=== PATIENT | female | born 1985 | race African-American/Black ===

== ENCOUNTER 2024-04-10 04:37 | Inpatient (IN) | payer BC, MEDICAID ==
[~2024-04-10] VITALS: Ht 175.3 cm; Wt 76.2 kg
[2024-04-10 04:43] VITALS: O2SAT 100
[2024-04-10] MEDS: ONDANSETRON 4MG ODT PO ONE (05:45)
[2024-04-10 06:29] LABS: CHLORIDE 109 mEq/L (98-107); POTASSIUM 3.9 mEq/L (3.5-5.1); SODIUM 140 mEq/L (136-145)
[2024-04-10 06:30] LABS: CALCIUM 10.1 mg/dL (8.7-10.4); CARBON DIOXIDE 19 mEq/L (21-32)
[2024-04-10 06:35] LABS: GLUCOSE 139 mg/dL (70-105); UREA NITROGEN BLOOD 14 mg/dL (9-23)
[2024-04-10 06:37] LABS: ALANINE AMINOTRANSFERASE 23 IU/L (10-49); ALBUMIN 4.6 g/dL (3.2-4.8); ASPARTATE AMINOTRANSFERASE 25 IU/L (<34); BILIRUBIN DIRECT 0.2 mg/dL (<=3.0); BILIRUBIN TOTAL 0.7 mg/dL (0.1-1.0); PROTEIN TOTAL 7.6 g/dL (6.0-8.3)
[2024-04-10 06:38] LABS: HEMATOCRIT. 37.6 % (36.0-48.0); HEMOGLOBIN. 12.5 g/dL (12.0-16.0); MEAN CORPUSCULAR HEMOGLOBIN 27.7 pg (28.0-32.0); MEAN CORPUSCULAR HGB CONC 33.3 g/dL (31.0-37.0); MEAN CORPUSCULAR VOLUME 83.1 fL (81.0-99.0); MEAN PLATELET VOLUME 9.4 fl (7.4-10.4); PLATELET 334 x1000/uL (130-400); RED BLOOD CELL COUNT 4.53 mill/uL (4.2-5.4); RED CELL DISTRIBUTION WIDTH 15.9 % (11.6-14.6); WHITE BLOOD COUNT 11.4 x1000/uL (4.5-11.0)
[2024-04-10] MEDS: SODIUM CHLORIDE 0.9% 1,000 ML IV ONE (06:45)
[2024-04-10] MEDS: MORPHINE SULFATE 4 MG/ML INJ (FOR IV/IM USE) IV ONE (06:57)
[2024-04-10 07:24] LABS: HCG SCREEN NEGATIVE
[2024-04-10 07:49] LABS: CLARITY URINE CLEAR (CLEAR); COLOR URINE YELLOW (YELLOW); GLUCOSE URINE NEGATIVE (NEGATIVE); KETONES URINE 3+ (NEGATIVE); LEUKOCYTE ESTERASE URINE NEGATIVE (NEGATIVE); NITRITE URINE NEGATIVE (NEGATIVE); OCCULT BLOOD URINE NEGATIVE (NEGATIVE); PH URINE >=9.0 (4.5-8.0); PROTEIN URINE 1+ (NEGATIVE); SPECIFIC GRAVITY URINE 1.021 (1.005-1.030)
[2024-04-10 07:55] LABS: DIFFERENTIAL COMMENT 1
[2024-04-10 08:04] LABS: MUCUS URINE 2+ /lpf (< = 2+); SQUAMOUS EPITHELIAL CELL URINE 2+ /lpf (RARE/1+)
[2024-04-10 08:05] LABS: WBC URINE 0-2 /hpf (0-2)
[2024-04-10 08:06] LABS: BACTERIA URINE TRACE
[2024-04-10 09:40] LABS: ANISOCYTOSIS 1+; PLATELET ESTIMATE NORMAL
[2024-04-10] MEDS: SODIUM CHLORIDE 0.9% 1,000 ML IV SCH (16:30)
[2024-04-10] MEDS ORDERED: DIPHENHYDRAMINE 50MG/ML VIAL IV PRN (16:30)
[2024-04-10] MEDS ORDERED: NALOXONE HCL 0.4MG/ML VIAL IV PRN (16:30)
[2024-04-10] MEDS: ONDANSETRON HCL 4MG/2ML INJ IV PRN (16:54)
[2024-04-10] MEDS: MORPHINE SULFATE 4 MG/ML INJ (FOR IV/IM USE) IV PRN (16:54)
[2024-04-10 17:30] VITALS: BP 126/69; PULSE 88; RESP 18; TEMP 36.78072; O2SAT 100
[2024-04-10 20:00] VITALS: PULSE 100; RESP 18; TEMP 37.00296; O2SAT 99
[2024-04-11] VITALS (7 sets, daily range): BP systolic 95–131; BP diastolic 50–69; PULSE 68–100; RESP 18–20; TEMP 36.22512–37.05852; O2SAT 97–100
[2024-04-11 06:52] LABS: CHLORIDE 108 mEq/L (98-107); POTASSIUM 3.3 mEq/L (3.5-5.1); SODIUM 140 mEq/L (136-145)
[2024-04-11 06:53] LABS: CALCIUM 8.7 mg/dL (8.7-10.4); CARBON DIOXIDE 23 mEq/L (21-32)
[2024-04-11 06:54] LABS: BASOPHILS % 0.2 % (0.0-2.0); EOSINOPHILS % 0.8 % (0.0-5.0); HEMATOCRIT. 33.2 % (36.0-48.0); HEMOGLOBIN. 11.1 g/dL (12.0-16.0); LYMPHOCYTES % 24.1 % (20.0-50.0); MEAN CORPUSCULAR HEMOGLOBIN 28.1 pg (28.0-32.0); MEAN CORPUSCULAR HGB CONC 33.4 g/dL (31.0-37.0); MEAN PLATELET VOLUME 9.4 fl (7.4-10.4); MONOCYTES % 13.6 % (2.0-8.0); NEUTROPHILS % 61.3 % (40.0-76.0); PLATELET 269 x1000/uL (130-400); RED BLOOD CELL COUNT 3.95 mill/uL (4.2-5.4); RED CELL DISTRIBUTION WIDTH 15.8 % (11.6-14.6); WHITE BLOOD COUNT 7.1 x1000/uL (4.5-11.0)
[2024-04-11 06:58] LABS: CREATININE 1.1 mg/dL (0.6-1.0); GLUCOSE 89 mg/dL (70-105); UREA NITROGEN BLOOD 9 mg/dL (9-23)
[2024-04-11 07:00] LABS: PHOSPHORUS 1.9 mg/dL (2.5-4.9)
[2024-04-11] MEDS: PANTOPRAZOLE SODIUM 40 MG/VIAL IV SCH (09:34)
[2024-04-11] MEDS ORDERED: NALOXONE HCL 0.4MG/ML VIAL IV PRN (09:45)
[2024-04-11] MEDS ORDERED: POTASSIUM PHOSPHATE 20 MMOL in DEXT 5% WATER 243.3333 ML IV ONE (10:00)
[2024-04-11] MEDS: ACETAMINOPHEN 325MG TABLET PO PRN (10:53)
[2024-04-11] MEDS: POTASSIUM-SODIUM PHOSPHATE POWDER PACKET PO NR (10:53)
[2024-04-11] MEDS: HYDROCODONE/ACETAMINOPHEN 5/325MG TABLET PO PRN (14:19)
[2024-04-11] MEDS ORDERED: ONDA-241 MT (14:46)
[2024-04-11] MEDS ORDERED: ACET-3800 MT (14:46)
[2024-04-12] VITALS: BP 89/57; PULSE 75; RESP 19; TEMP 36.72516; O2SAT 97
[2024-04-12 04:00] VITALS: BP 88/54; PULSE 71; RESP 19; TEMP 36.9474; O2SAT 99
[2024-04-12 08:00] VITALS: BP 112/64; PULSE 66; RESP 19; TEMP 36.55848; O2SAT 99
[2024-04-12 12:00] VITALS: BP 115/66; PULSE 72; RESP 19; TEMP 36.44736; O2SAT 99
[2024-04-12 16:00] VITALS: BP 118/69; PULSE 70; RESP 19; TEMP 36.50292; O2SAT 99
[2024-04-12 19:01] LABS: CARBON DIOXIDE 27 mEq/L (21-32); CHLORIDE 107 mEq/L (98-107); POTASSIUM 3.6 mEq/L (3.5-5.1); SODIUM 139 mEq/L (136-145)
[2024-04-12 19:02] LABS: CALCIUM 9.1 mg/dL (8.7-10.4)
[2024-04-12 19:05] LABS: BASOPHILS % 0.6 % (0.0-2.0); EOSINOPHILS % 2.2 % (0.0-5.0); HEMATOCRIT. 34.4 % (36.0-48.0); HEMOGLOBIN. 11.3 g/dL (12.0-16.0); LYMPHOCYTES % 47.1 % (20.0-50.0); MEAN CORPUSCULAR HEMOGLOBIN 27.9 pg (28.0-32.0); MEAN CORPUSCULAR VOLUME 84.7 fL (81.0-99.0); MEAN PLATELET VOLUME 9.7 fl (7.4-10.4); MONOCYTES % 18.6 % (2.0-8.0); NEUTROPHILS % 31.5 % (40.0-76.0); PLATELET 271 x1000/uL (130-400); RED BLOOD CELL COUNT 4.06 mill/uL (4.2-5.4); RED CELL DISTRIBUTION WIDTH 15.7 % (11.6-14.6); WHITE BLOOD COUNT 3.4 x1000/uL (4.5-11.0)
[2024-04-12 19:06] LABS: CREATININE 1.1 mg/dL (0.6-1.0); GLUCOSE 80 mg/dL (70-105)
[2024-04-12 19:07] LABS: DIFFERENTIAL COMMENT 1; UREA NITROGEN BLOOD 8 mg/dL (9-23)
[2024-04-12 19:08] LABS: PHOSPHORUS 2.4 mg/dL (2.5-4.9)
[2024-04-12 20:00] VITALS: BP 94/56; PULSE 77; RESP 18; TEMP 36.33624; O2SAT 98
[2024-04-13] VITALS: BP 115/62; PULSE 87; RESP 18; TEMP 36.50292; O2SAT 100
[2024-04-13 08:00] VITALS: BP 104/58; PULSE 77; RESP 18; TEMP 37.00296; O2SAT 99
[2024-04-13 12:00] VITALS: BP 109/68; PULSE 77; RESP 18; TEMP 36.55848; O2SAT 99
[2024-04-13] MEDS ORDERED: KETOROLAC 30MG/ML VIAL IV PRN (12:30)
[2024-04-13 16:00] VITALS: BP 93/53; PULSE 77; RESP 18; TEMP 36.6696; O2SAT 98
[2024-04-13 20:00] VITALS: BP 143/78; PULSE 92; RESP 19; TEMP 36.6696; O2SAT 100
[2024-04-14] VITALS (7 sets, daily range): BP systolic 96–120; BP diastolic 47–66; PULSE 77–88; RESP 14–19; TEMP 35.89176–37.61412; O2SAT 97–100
[2024-04-14] MEDS: HYDROCODONE/ACETAMINOPHEN 5/325MG TABLET PO PRN (01:39)
[2024-04-14] MEDS: DIPHENHYDRAMINE 50MG/ML VIAL IV PRN (09:48)
[2024-04-14 13:39] LABS: *AMPHETAMINES SCREEN URINE NEGATIVE (NEGATIVE); *BARBITURATES SCREEN URINE NEGATIVE (NEGATIVE); *BENZODIAZEPINES SCREEN URINE NEGATIVE (NEGATIVE); *COCAINE SCREEN URINE NEGATIVE (NEGATIVE); CANNABINOID URINE SCREEN NEGATIVE (NEGATIVE); METHADONE URINE SCREEN NEGATIVE (NEGATIVE); OPIATES URINE SCREEN PRESUMPTIVE POSITIVE (NEGATIVE); PHENCYCLIDINE URINE SCREEN NEGATIVE (NEGATIVE)
[2024-04-14 13:40] LABS: ECSTASY MDMA SCREEN URINE NEGATIVE (NEGATIVE)
[2024-04-15] VITALS: BP 119/75; RESP 18; TEMP 36.89184; O2SAT 99
[2024-04-15] MEDS ORDERED: FAMOTIDINE 20MG/2ML VIAL IV SCH (09:00)
== END 2024-04-15 00:52 | disposition home or self-care (01) | DRG 249 ==
LOC: ER 04:51 → 6EST 08:37 → EDBEDREQTM 08:39 → EDBEDREQ 08:39
PROVIDERS: ADMIT Internal Medicine; ATTEND Internal Medicine
DX: K52.9 Noninfective gastroenteritis and colitis, unspecified (principal)
CPT/HCPCS: 36415; 74176; 80048; 80076; 80305; 81003; 83735; 84100; 84703; 85025; 99285; J1200; J2270; J2405; J2470; J7030; Q0162